=== PATIENT | female | born 2005 ===

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

== ENCOUNTER 2025-08-20 07:33 | Day surgery (SDC) | payer BC, OTHER ==
[~2025-08-20] VITALS: Ht 167.6 cm; Wt 97.6 kg
[2025-08-20] VITALS (19 sets, daily range): BP systolic 71–134; BP diastolic 48–120
[2025-08-20] MEDS ORDERED: Midazolam HCl 1MG / ML 2ML Vial ONE (09:16)
--- NOTE | 2025-08-20 10:08 | NUR ---
08/20/25 [email or web address] Carrol Marie PRIOR TO START OF SEDATION: CONFIRMED AND REVIEWED H&P, MEDCICATIONS, ALLERGIES, MEDICAL HISTORY, RESPIRATORY HISTORY, VITAL SIGNS, 3-LEAD EKG, CONSENTS, AND PHYSICIAN ORDERS. PATIENT CONFIRMS NPO STATUS AND AGREES WITH SCHEDULED PROCEDURE. MONITOR INTACT WITH CONTINUOUS PULSE OXIMETRY, CAPNOGRAPHY, 3-LEAD EKG, INTERMITTENT BP. SUPPLEMENTAL O2 TO BE TITRATED THROUGHOUT PROCEDURE TO MAINTAIN O2 SATURATION ABOVE 90%. PATIENT DETERMINED TO BE ASA APPROPRIATE FOR PROPOFOL SEDATION PRIOR TO START OF PROCEDURE BY DR. CARRANZA. MALLAMPATI CLASS 1 AIRWAY: COMPLETE VISULATIZATION OF THE SOFT PALATE.
== END 2025-08-20 10:25 | disposition home or self-care (01) ==
LOC: ORSCMMR 07:33 → ORD 09:00 → ORSCMMR 09:00
PROVIDERS: Surgery
PROC: 0DBJ8ZX Excision of Appendix, Via Natural or Artificial Opening Endoscopic, Diagnostic (ICD-10-PCS; principal; 2025-08-20 09:00)
DX: D50.9 Iron deficiency anemia, unspecified (principal); Z86.0101 Personal history of adenomatous and serrated colon polyps; K63.5 Polyp of colon
CPT/HCPCS: 88305; J2250; J2704; J7120